=== PATIENT | male | born 1990 | race Caucasian/White ===

== ENCOUNTER 2017-09-06 13:46 | Emergency (ER) | payer SELFPAY ==
[2017-09-06 13:52] VITALS: BP 112/70; BMI 22.1
--- NOTE | 2017-09-06 14:32 | RAD ---
Examination: Right elbow, two views History: Pain Findings: No definite fracture, dislocation or synovial distension. Impression: Within normal limits. Reported By:
[2017-09-06] MEDS ORDERED: SOLU-Medrol 125 MG VIAL IM ONE (14:43)
--- NOTE | 2017-09-06 14:46 | DR.EXTPAIN ---
HPI - PCP Primary Care Physician: NFD - HPI Comment HPI Comment: Noticed rt elbow sharp pain on flexion and extension 5 days ago, then a tree limb fell onto rt elbow while at work yesterday, intensifying pain. Pt rt handed. 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 PT C/O HAVING TROUBLE BENDING ARM AND IT FEELS LIKE ITS IN THE BONE, Self Treatment fo Chief Complaint: HEAT TYLENOL.. - Source History Provided: Patient - Mode of arrival Mode of Arrival: Ambulatory - Timing Onset of Chief Complaint: 09/03/17 PMH - PMH Past Medical History: No Past Medical History Comment: no contrib PMH Past Surgical History: Yes Past Surgical History Comment: FACIAL SURGERY, - Family History History of Family Medical Conditions: No - Social History Does patient currently use any type of tobacco product: Yes Have you used tobacco products in the last 12 months: Yes Type of Tobacco Use: Cigarettes How many years tobacco product used: 1 Does any household member use tobacco: No Alcohol Use: Rarely Do you use any recreational Drugs:: No Lives With: Family Lives Where: Home - infectious screening In the last 2 months have you had wt loss of >10#?: NO Have you had fever, night sweats or hemotysis?: No Have you traveled outside the country in the last 6 months?: No Isolation: Standard ROS - Review of Systems Constitutional: No Symptoms Reported, See HPI Eyes: No Symptoms Reported ENTM: No Symptoms Reported Respiratoy: No Symptoms Reported Cardiovascular: No Symptoms Reported Gastrointestinal/Abdominal: No Symptoms Reported Genitourinary: No Symptoms Reported Neurological: No Symptoms Reported. negative: Numbness, Paresthesia, Tingling Musculoskeletal: Joint Pain, Elbow (rt elbow only) Integumentary: No Symptoms Reported. negative: Change in Color, Wound Hematologic/Lymphatic: No Symptoms Reported Endocrine: No Symptoms Reported Psychiatric: No Symptoms Reported All Other Systems: Reviewed and Negative PE - Vital Signs Vitals: Temperature 97.0 F Pulse Rate 84 Respiratory Rate 18 Blood Pressure 112/70 O2 Sat by Pulse Oximetry 99 - General Limitations: No Limitations General Appearance: Alert, In No Apparent Distress. negative: Appears Intoxicated - Head Head Exam: Normal Inspection - Eyes Eye exam: Normal Appearance - Chest Chest Inspection: Normal Inspection - Respiratory Respiratory Exam: Normal Lung Sounds Bilat. negative: Chest Wall Tenderness, Respiratory Distress Respiratory Exam: Bilateral Clear to Auscultation - Cardiovascular Cardiovascular Exam: Regular Rate, Normal Rhythm. negative: Systolic Murmur, Diastolic Murmur - Abdominal Exam Abdominal Exam: Normal Inspection, Normal Bowel Sounds, Soft - Upper Extremities Shoulder Exam: Normal Inspection, Full ROM. negative: Tenderness, Swelling Arm Exam: Normal Inspection, Full ROM. negative: Tenderness, Swelling Elbow Exam: Normal Inspection, Full ROM, Tenderness, Other (. Tender over lat epicondyle. Pain on flexion and ext. No bony deformity palpable). negative: Swelling, Abrasion, Laceration, Ecchymosis, Deformity, Crepitus, Dislocation, Erythema, Pain w/ pronation, Pain w/ Spuination, Tenderness over Radial Head ROR - XRAY XRAY Interpreted by: Radiologist (nothing acute seen on rt elbow Xray) - Diagnosis Discharge Problem: Lateral epicondylitis of elbow - Discharge Plan Disposition: 01 HOME, SELF-CARE Condition: Stable Prescriptions: Ketorolac Tromethamine [Toradol Tab] 10 mg PO Q8H PRN #12 tab PRN Reason: Pain Prednisone [Prednisone Tab 10 mg] 10 mg PO QAM 5 Days #5 tab - Follow ups/Referrals Follow ups/Referrals: NFD,None [Primary Care Provider] - 3 days - Instructions
[2017-09-06] MEDS ORDERED: SOLU-Medrol 125 MG VIAL ONE (15:00)
== END 2017-09-06 15:15 | disposition home or self-care (01) | DRG 556 ==
LOC: ER 14:02
DX: M25.521 Pain in right elbow (principal); W20.8XXA Other cause of strike by thrown, projected or falling object, initial encounter; Y93.89 Activity, other specified; Y92.89 Other specified places as the place of occurrence of the external cause
CPT/HCPCS: 73070; 96372; 99282; J2930